=== PATIENT | female | born 1950 | race Two or more races ===

== ENCOUNTER 2016-12-15 10:17 | Inpatient (IN) | payer OTHER ==
[2016-12-15] VITALS (12 sets, daily range): BP systolic 119–147; BP diastolic 72–89
[~2016-12-15] VITALS: Ht 165.1 cm; Wt 80.7 kg
--- NOTE | 2016-12-15 10:20 | NUR ---
BIB [facility] 881 FROM HOME C/O NAUSEA, VOMITING, DEHYDRATION x 10 DAYS. PATIENT A/O X2. BREATHING EVEN AND UNLABORED. NO SOB. VITALS STABLE. SAFETY AND COMFORT MEASURES IN PLACE. MD AT BEDSIDE FOR EVAL.
[2016-12-15] MEDS ORDERED: IV NS 0.9% 1,000 ML BAG IV ONE ×2 (10:30→11:00)
[2016-12-15] MEDS ORDERED: ONDANSETRON HCL/PF 4 MG/2 ML VIAL IVP ONE (10:30)
[2016-12-15] MEDS ORDERED: ONDANSETRON HCL/PF 4 MG/2 ML VIAL ONE (10:31)
--- NOTE | 2016-12-15 10:33 | NUR ---
NEW IV STARTED ON LAC, 20 G. BLOOD DRAWN AND SENT TO LAB. PATIENT MEDICATED PER MD ORDERS.
--- NOTE | 2016-12-15 10:35 | NUR ---
PATIENT TAKEN TO CT VIA STRETCHER.
[2016-12-15 10:47] LABS: CALCIUM, SERUM 9.9 mg/dL (8.5-10.1); CREATININE 1.6 mg/dL (0.6-1.3)
--- NOTE | 2016-12-15 10:50 | NUR ---
PATIENT RETURNED FROM CT IN STABLE CONDITION.
[2016-12-15 10:51] LABS: TROPONIN I 0.038 ng/mL (0.00-0.056)
[2016-12-15 10:53] LABS: ALBUMIN 2.8 g/dL (3.4-5.0); BILIRUBIN,TOTAL 1.4 mg/dL (0.2-1.0); TOTAL PROTEIN, SERUM 6.7 g/dL (6.4-8.2)
[2016-12-15] MEDS ORDERED: INSULIN DETEMIR 100 UNIT/ML CARTRIDGE SQ SCH (11:00)
[2016-12-15 11:06] LABS: BASOPHILS % (AUTO) 0.2 % (0.0-2.0); EOSINOPHILS % (AUTO) 0.2 % (0.0-6.0); HEMATOCRIT 39 % (33-45); HEMOGLOBIN 12.7 g/dL (11.5-14.8); LYMPHOCYTES # (AUTO) 1.9 /CMM (0.8-4.8); LYMPHOCYTES % (AUTO) 12.7 % (20.0-44.0); MEAN CORPUSCULAR HEMOGLOBIN 33 PG (26.0-33.0); MEAN CORPUSCULAR HGB CONC 33 g/dl (31.0-36.0); MEAN CORPUSCULAR VOLUME 100 fL (82-100); MONOCYTES # (AUTO) 0.8 /CMM (0.1-1.30); MONOCYTES % (AUTO) 5.6 % (2.0-12.0); NEUTROPHILS # (AUTO) 12.3 /CMM (1.8-8.9); NEUTROPHILS % (AUTO) 81.3 % (43.0-81.0); PLATELET COUNT (AUTO) 240 /CMM (150-450); RDW COEFFICIENT OF VARIATION 16.9 (11.5-15.0); RED BLOOD CELL COUNT(AUTO) 3.86 MIL/uL (4.0-5.2); WHITE BLOOD COUNT (AUTO) 15.1 K/uL (4.3-11.0)
--- NOTE | 2016-12-15 11:10 | NUR ---
US TECH AT BEDSIDE.
[2016-12-15] MEDS ORDERED: INSULIN REGULAR, HUMAN 100 UNIT/ML 10 ML VIAL ONE (11:15)
--- NOTE | 2016-12-15 11:20 | NUR ---
CALLED [employer] by [employer], GENERAL PURCHASING AGENT WAS PAGED.
[2016-12-15] MEDS ORDERED: INSULIN REGULAR, HUMAN 100 UNIT/ML 10 ML VIAL IV ONE (11:30)
--- NOTE | 2016-12-15 11:33 | NUR ---
DR ALLEN CALLED, ON THE PHONE WITH DR MARIE.
[2016-12-15 11:51] LABS: APPEARANCE,URINE Clear (CLEAR); BILIRUBIN,URINE Negative (NEGATIVE); BLOOD, URINE Negative Ery/uL (NEGATIVE); COLOR,URINE Yellow (YELLOW); KETONES,URINE Trace (NEGATIVE); LEUKOCYTE ESTERASE ,URINE Negative (NEGATIVE); NITRITE, URINE Negative (NEGATIVE); PH,URINE 7.5 (5.0-8.0); PROTEIN,URINE Negative (NEGATIVE); UGLUCOSE 500 MG/DL mg/dL (NEGATIVE); UROBILINOGEN,URINE 0.2 EU/dL (0.2)
[2016-12-15] MEDS: INSULIN REGULAR, HUMAN 100 UNIT in IV NS 0.9% 99 ML IV ONE ×2 (12:02)
[2016-12-15 12:03] LABS: BACTERIA,URINE Rare /HPF (None Seen); RBC,URINE 0-3 /HPF (0-2); SQUAMOUS EPITHELIAL CELL,UR Few /HPF (None Seen); WBC,URINE 0-3 /HPF (0-3); YEAST,URINE Rare /HPF (None Seen)
[2016-12-15] MEDS ORDERED: ONDANSETRON HCL/PF 4 MG/2 ML VIAL IVP PRN (12:30)
[2016-12-15] MEDS ORDERED: INSULIN REGULAR, HUMAN 100 UNIT in IV NS 0.9% 99 ML IV PRN ×2 (12:30)
--- NOTE | 2016-12-15 12:30 | NUR ---
QUIRK SANDER- INITIAL NOTE. RECEIVED PT A/O X4, TURKISH SPEAKING. ON ROOM AIR, RESPIRATIONS EVEN AND UNLABORED, NO SOB OR DISTRESS PRESENT. BEDSIDE MONITOR REVEALS SINUS RHYTHM. TWO IVS PRESENT: 1) LEFT AC 20G AND 2) LEFT WRIST 20 G RUNNING INSULIN GTT AT 6 MLS/HR (STARTED FROM ER). FAMILY AT BEDSIDE. SAFETY MEASURES TAKEN: BED LOCKED AND IN LOW POSITION, SIDE RAILS UP X2, BED ALARM ON AND CALL LIGHT WITHIN REACH, WILL CONTINUE TO MONITOR.
--- NOTE | 2016-12-15 12:32 | NUR ---
PATIENT TRANSPORTED TO [facility] VIA ACLS PROTOCOL. RNANSLEY TO PROVIDE KIERA.
[2016-12-15] MEDS: ENOXAPARIN SODIUM 30 MG/0.3 ML DISP.SYRIN SQ SCH (13:00)
[2016-12-15] MEDS: IV NS 0.9% 1,000 ML IV PRN ×2 (13:00→19:11)
--- NOTE | 2016-12-15 13:30 | NUR ---
METAL CRAFTS TEACHER- VERIFIED WITH DR. MONTES DE OCA ON INSULIN GTT. PER , PT TO BE ON NON-DKA INSULIN GTT, ALGORITHM #1. FAXED ORDER FORM TO PHARMACY. WILL CONTINUE TO MONITOR.
[2016-12-15 15:53] LABS: CALCIUM, SERUM 8.7 mg/dL (8.5-10.1); CREATININE 1.1 mg/dL (0.6-1.3)
--- NOTE | 2016-12-15 18:22 | NUR ---
SCIENTIFIC LINGUIST- PT RESTING IN BED, NO NAUSEA/VOMITING NOTED, DENIES PAIN OR DISCOMFORT. VITAL SIGNS STABLE. CONTINUES ON INSULIN GTT AT 1 UNIT/HR (TITRATED PER PROTOCOL). REMAINS NPO. WILL ENDORSE TO HOT PRESS OPERATOR NURSE FOR CONTINUITY OF CARE.
--- NOTE | 2016-12-15 19:45 | NUR ---
DIRECTOR OF REGIONAL SALES NOTES RECEIVED PT IN BED, AWAKE. A/O X4. JAMAICAN SPEAKING. TELE READS SR AT 94 BPM. ON ROOM AIR TOLERATING WELL. NPO STATUS. ABLE TO USE BSC. LAC 20G IV AND LEFT WRIST 20G IV, RUNNING NS AT 150 ML/HR AND INSULIN DRIP AT 0.5 UNITS/HR. LAST BG 118 MG/DL. PT DENIES N/V AND PAIN. CALL LIGHT WITHIN REACH, SIDE RAILS X2. ALL NEEDS MET.
[2016-12-15 19:51] LABS: CALCIUM, SERUM 8.7 mg/dL (8.5-10.1); POTASSIUM 3.9 mmol/L (3.5-5.1)
[2016-12-15] MEDS: BLOOD SUGAR DIAGNOSTIC 1 EACH STRIP VI SCH ×2 (22:09→23:46)
[2016-12-15 23:36] LABS: CALCIUM, SERUM 8.3 mg/dL (8.5-10.1); POTASSIUM 4.1 mmol/L (3.5-5.1)
[2016-12-16] VITALS (19 sets, daily range): BP systolic 116–175; BP diastolic 73–99
[2016-12-16] MEDS ORDERED: IV NS 0.9% 1,000 ML IV PRN
--- NOTE | 2016-12-16 | NUR ---
PAPER BAG INSPECTOR NOTES PT CURRENT BG IS 105 MG/DL. TYLER CUELLO MADE AWARE. NEW ORDERS RECEIVED TO D/C INSULIN DRIP, INITIATE SUBQ SLIDING SCALE INSULIN COVERAGE, REDUCE IVF RATE TO 75ML/HR AND START OF CONSISTENT CARB DIET.
[2016-12-16] MEDS: BLOOD SUGAR DIAGNOSTIC 1 EACH STRIP IN SCH ×5 (01:04→21:56)
--- NOTE | 2016-12-16 02:30 | NUR ---
CERTIFIED PARALEGAL NOTES PT GIVEN BED BATH, LINENS CHANGED. PT HAD VOID IN DIAPER AND ABLE TO ALERT RN OF WET DIAPER.
[2016-12-16 04:55] LABS: BASOPHILS # (AUTO) 0.1 /CMM (0.0-0.2); BASOPHILS % (AUTO) 0.7 % (0.0-2.0); EOSINOPHILS # (AUTO) 0.2 /CMM (0.0-0.7); EOSINOPHILS % (AUTO) 1.8 % (0.0-6.0); HEMATOCRIT 34 % (33-45); HEMOGLOBIN 11.4 g/dL (11.5-14.8); LYMPHOCYTES % (AUTO) 15.8 % (20.0-44.0); MEAN CORPUSCULAR HEMOGLOBIN 33 PG (26.0-33.0); MEAN CORPUSCULAR HGB CONC 33 g/dl (31.0-36.0); MEAN CORPUSCULAR VOLUME 100 fL (82-100); MONOCYTES # (AUTO) 0.6 /CMM (0.1-1.30); MONOCYTES % (AUTO) 4.5 % (2.0-12.0); NEUTROPHILS # (AUTO) 9.8 /CMM (1.8-8.9); NEUTROPHILS % (AUTO) 77.2 % (43.0-81.0); PLATELET COUNT (AUTO) 194 /CMM (150-450); RDW COEFFICIENT OF VARIATION 16.8 (11.5-15.0); RED BLOOD CELL COUNT(AUTO) 3.44 MIL/uL (4.0-5.2); WHITE BLOOD COUNT (AUTO) 12.7 K/uL (4.3-11.0)
[2016-12-16 05:12] LABS: THYROID STIMULATING HORMONE 4.814 uIU/mL (0.358-3.74)
[2016-12-16 06:09] LABS: CALCIUM, SERUM 8.1 mg/dL (8.5-10.1); CREATININE 1.1 mg/dL (0.6-1.3)
[2016-12-16 06:10] LABS: MAGNESIUM 1.8 mg/dL (1.8-2.4); PHOSPHORUS 3.9 mg/dL (2.5-4.9)
--- NOTE | 2016-12-16 07:30 | NUR ---
BICYCLE REPAIR TECHNICIAN RECEIVED PATIENT AWAKE ON ROOM AIR WITH ON GOING IVF RUNNING AT 75 ML/HR AFEBRILE ALERT ORIENTED X 3 INDEPENDENT ON BED SLIGHTLY WEAKNESS ON LOWER EXTREMITIES
--- NOTE | 2016-12-16 07:30 | NUR ---
DESIGN VERIFICATION ENGINEER RECEIVED PATIENT AWAKE, OPENS EYES TO PAIN ON 2 LITERS NASAL CANNULA SATURATION 99% AFEBRILE BUT WARM TO TOUCH ON INSULIN AND NEOSYNEPHRINE DRIP MONITORED ACCURATELY ZARAGOZA CATHETER DRAINING TO YELLOWISH URINE WOUND CARE DONE, WOUND CARE NURSE SAW PATIENT WITH NEW ORDERS MADE AND CARRIED OUT Addendum: 12/16/16 at 1719 by ADALGISA DELACRUZ RN ERROR
[2016-12-16] MEDS: PANTOPRAZOLE 40 MG VIAL IV SCH (09:01)
[2016-12-16] MEDS: ENOXAPARIN SODIUM 30 MG/0.3 ML DISP.SYRIN SQ SCH (09:02)
--- NOTE | 2016-12-16 09:21 | NUR ---
PLASTIC MAKER BLOOD SUGAR IS HIGH - PATIWNT JUST ATE, WILL CHANGE BLOOD SUGAR CHECK ACHS WILL INFORM MD
[2016-12-16] MEDS: IV 1/2NS 1000 ML 1,000 ML IV PRN ×2 (11:46→22:28)
[2016-12-16] MEDS ORDERED: BLOOD SUGAR DIAGNOSTIC 1 EACH STRIP IN SCH (12:00)
[2016-12-16] MEDS ORDERED: INSULIN REGULAR, HUMAN 100 UNIT/ML 3 ML VIAL SQ PRN ×2 (12:00)
[2016-12-16] MEDS ORDERED: DEXTROSE 50%-WATER 50 ML DISP.SYRIN IV PRN ×2 (12:30)
[2016-12-16] MEDS: INSULIN REGULAR, HUMAN 100 UNIT/ML 3 ML VIAL SQ PRN ×2 (15:47→17:37)
[2016-12-16] MEDS: CEFTRIAXONE 1 G in IV D5W 50 ML IV SCH (17:26)
--- NOTE | 2016-12-16 18:11 | NUR ---
DESKTOP SUPPORT CONSULTANT REPORT GIVEN TO MELI BISHOP TRANSFERRED PATIENT
--- NOTE | 2016-12-16 18:20 | NUR ---
RN NOTES RECEIVED PATIENT FROM ICU. NO ACUTE DISTRESS, NO SOB NOTED. DENIES PAIN AND DISCOMFORT. SAFETY MEASURES INITIATED. BED IN LOW POSITION, LOCKED, SIDERAILS UPX2. CALL LIGHT IN REACH. WILL ENDORSED TO WRAPPER STEMMER HAND RN FOR KIERA.
--- NOTE | 2016-12-16 21:56 | NUR ---
MS2/RN ACCU CHECK DONE, INITIAL RESULT 44, REPEATED, BLOOD SUGAR 59, PATIENT IS ASYMPTOMATIC. D 50 IV WAS GIVEN ORDERED. WILL MONITOR.
--- NOTE | 2016-12-16 23:58 | NUR ---
MS2/RN RECHECK BLOOD [id number]. WILL CONTINUE TO MONITOR.
[2016-12-17] MEDS: IV 1/2NS 1000 ML 1,000 ML IV PRN ×2 (05:49→18:25)
[2016-12-17 06:43] LABS: BASOPHILS # (AUTO) 0.1 /CMM (0.0-0.2); BASOPHILS % (AUTO) 0.7 % (0.0-2.0); EOSINOPHILS # (AUTO) 0.2 /CMM (0.0-0.7); EOSINOPHILS % (AUTO) 1.7 % (0.0-6.0); HEMATOCRIT 35 % (33-45); LYMPHOCYTES # (AUTO) 1.8 /CMM (0.8-4.8); LYMPHOCYTES % (AUTO) 18.8 % (20.0-44.0); MEAN CORPUSCULAR HEMOGLOBIN 34 PG (26.0-33.0); MEAN CORPUSCULAR HGB CONC 34 g/dl (31.0-36.0); MEAN CORPUSCULAR VOLUME 100 fL (82-100); MONOCYTES # (AUTO) 0.5 /CMM (0.1-1.30); MONOCYTES % (AUTO) 5.8 % (2.0-12.0); NEUTROPHILS # (AUTO) 6.9 /CMM (1.8-8.9); PLATELET COUNT (AUTO) 174 /CMM (150-450); RDW COEFFICIENT OF VARIATION 16.5 (11.5-15.0); RED BLOOD CELL COUNT(AUTO) 3.53 MIL/uL (4.0-5.2); WHITE BLOOD COUNT (AUTO) 9.5 K/uL (4.3-11.0)
--- NOTE | 2016-12-17 07:07 | NUR ---
MS2/RN AWAKE, ALERT, ORIENTED, COMFORTABLE, NO DISTRESS NOTED, ALL NEEDS ATTENDED AT THIS TIME. WILL CONTINUE TO MONITOR.
[2016-12-17 07:09] LABS: CALCIUM, SERUM 8.2 mg/dL (8.5-10.1); MAGNESIUM 1.5 mg/dL (1.8-2.4); PHOSPHORUS 2.9 mg/dL (2.5-4.9)
[2016-12-17 07:15] LABS: POTASSIUM 3.6 mmol/L (3.5-5.1)
[2016-12-17] MEDS: BLOOD SUGAR DIAGNOSTIC 1 EACH STRIP IN SCH ×4 (07:30→21:52)
--- NOTE | 2016-12-17 08:30 | NUR ---
MS RN PATIENT ON BED, AWAKE,ALERT,ORIENTED X3, NOT IN ANY FORM OF DISTRESS, RESPIRATIONS EVEN AND UNLABORED,NO SOB NOTED, LUNGS ARE CLEAR, ABDOMEN SOFT,POSITIVE BOWEL SOUNDS, DENIES PAIN AT THIS TIME, WILL MONITOR PATIENT.
--- NOTE | 2016-12-17 09:00 | NUR ---
MS BISHOP BREAKFAST SERVED,DUE MEDS GIVEN,TOLERATED WELL.
[2016-12-17] MEDS: PANTOPRAZOLE 40 MG VIAL IV SCH (09:06)
[2016-12-17] MEDS: ENOXAPARIN SODIUM 30 MG/0.3 ML DISP.SYRIN SQ SCH (09:14)
[2016-12-17] MEDS ORDERED: ACETAMINOPHEN 325 MG TABLET PO PRN (10:00)
[2016-12-17] MEDS: Magnesium 1GM/D5W 100ML PREMIX 100 ML IV SCH ×2 (12:42→14:09)
[2016-12-17] MEDS: INSULIN REGULAR, HUMAN 100 UNIT/ML 3 ML VIAL SQ PRN ×2 (12:48→17:47)
--- NOTE | 2016-12-17 13:00 | NUR ---
MS RN WAS SEEN BY DR. HAMILTON, WILL BE DISCHARGE TOMORROW,NOT TODAY.
--- NOTE | 2016-12-17 17:00 | NUR ---
MS EDNA TEXT DR. HAMILTON FOR B/P MEDS ORDER.
--- NOTE | 2016-12-17 17:20 | NUR ---
MS BISHOP BS-361 - 20 UNITS GIVEN FOR COVERAGE.
[2016-12-17] MEDS: CEFTRIAXONE 1 G in IV D5W 50 ML IV SCH (17:41)
[2016-12-17] MEDS ORDERED: hydrALAZINE HCL IV 20 MG VIAL IV PRN (18:00)
--- NOTE | 2016-12-17 18:08 | NUR ---
MS RN RECEIVED ORDER FROM DR. HAMILTON, WILL GIVE MEDS TO PATIENT PATIENT.
--- NOTE | 2016-12-17 19:30 | NUR ---
MS2/RN RECEIVE PATIENT AWAKE, ALERT, ORIENTED, COMFORTABLE, NO C/O PAIN AT THIS TIME, NO DISTRESS NOTED, CALL LIGHT IN REACH. PLAN OF CARE DISCUSSED, VERBALIZED UNDERSTANDING AND IN AGREEMENT, CALL LIGHT IN REACH. WILL MONITOR.
[2016-12-17 20:00] VITALS: BP 141/95
--- NOTE | 2016-12-17 21:13 | NUR ---
MS2/RN FOUND IV PULLED OUT. INSERTED NEW IV AT LEFT WRIST G22.
[2016-12-17] MEDS: *INSULIN REGULAR(HUMULIN R)HUM 100 UNIT/ML VIAL SQ PRN (21:49)
[2016-12-18] MEDS: IV 1/2NS 1000 ML 1,000 ML IV PRN (05:17)
--- NOTE | 2016-12-18 06:28 | NUR ---
MS2/RN PATIENT IS SLEEPING AT THIS TIME, AROUSES EASILY, NO DISTRESS NOTED, CALL LIGHT IN REACH. HAD AN ON AND OFF SLEEP THE DURING THE SHIFT. ALL NEEDS ATTENDED AT THIS TIME. WILL CONTINUE TO MONITOR.
[2016-12-18] MEDS: *INSULIN REGULAR(HUMULIN R)HUM 100 UNIT/ML VIAL SQ PRN (06:56)
[2016-12-18 07:44] LABS: CALCIUM, SERUM 8.1 mg/dL (8.5-10.1); CREATININE 0.8 mg/dL (0.6-1.3); MAGNESIUM 1.8 mg/dL (1.8-2.4); POTASSIUM 3.8 mmol/L (3.5-5.1)
[2016-12-18] MEDS: BLOOD SUGAR DIAGNOSTIC 1 EACH STRIP IN SCH ×2 (07:59→12:12)
[2016-12-18] MEDS: PANTOPRAZOLE 40 MG VIAL IV SCH (08:01)
[2016-12-18] MEDS: ENOXAPARIN SODIUM 30 MG/0.3 ML DISP.SYRIN SQ SCH (08:04)
--- NOTE | 2016-12-18 10:00 | NUR ---
RN NOTES RECEIVED PT. PT IS STABLE AND RESTING IN BED. A/0X4, PT PRIMARY LANGUAGE IS CROATIAN. NO S/S OF DISTRESS OR SOB. PT HAS NO C/O PAIN AT THIS TIME. PREVIOUS BS CHECK RESULTED IN 192, BS CONTINUES TO TREND DOWN. IV ACCESS LOCATED ON LEFT WRIST 22G RUNNING 1/2 NS AT 125 ML/HR. PT PLAN TO BE DC HOME TODAY 12/18/16 PENDING PT EVAL. SAFETY MEASURES IN PLACE, CALL LIGHT WITHIN REACH. WILL CONTINUE TO MONITOR.
[2016-12-18 10:07] VITALS: BP 158/83
[2016-12-18] MEDS: INSULIN REGULAR, HUMAN 100 UNIT/ML 3 ML VIAL SQ PRN (12:13)
--- NOTE | 2016-12-18 16:10 | NUR ---
DISCHARGE NOTE PT DISCHARGED HOME PER MD ORDER. ALL EXIT CARE AND PERTINENT LABS, REPORTS AND TESTS COPIED AND GIVEN TO PT. PT DC INSTRUCTIONS EXPLAINED, TRANSLATED BY MARTHA BISHOP. PT VERBALIZES UNDERSTANDING OF TEACHING. BELONGINGS LIST AND DISCHARGE INSTRUCTIONS SIGNED. COPIES MADE AND PLACED IN CHART. MEDICATION PRESCRIPTION GIVEN TO PT. ID BAND AND IV ACCESS REMOVED PRIOR TO DC. PICTURES TAKEN OF PERINEAL EXCORIATION. PT LEFT VIA PRIVATE CAR WITH .
== END 2016-12-18 16:05 | disposition home or self-care (01) | DRG 438 ==
LOC: ER 10:19 → ICU 12:21 → MEDSG2 12-16 18:22
DX: K85.90 Acute pancreatitis without necrosis or infection, unspecified (principal); N17.0 Acute kidney failure with tubular necrosis; E87.0 Hyperosmolality and hypernatremia; E44.0 Moderate protein-calorie malnutrition; E83.42 Hypomagnesemia; E86.0 Dehydration; E11.9 Type 2 diabetes mellitus without complications; E88.09 Other disorders of plasma-protein metabolism, not elsewhere classified; G25.0 Essential tremor; Z85.3 Personal history of malignant neoplasm of breast; E80.6 Other disorders of bilirubin metabolism; Z90.11 Acquired absence of right breast and nipple; Z68.29 Body mass index [BMI] 29.0-29.9, adult; E87.5 Hyperkalemia; F10.10 Alcohol abuse, uncomplicated; Z79.4 Long term (current) use of insulin
CPT/HCPCS: 36415; 71010-TC; 76705-TC; 80048-TC; 80061-TC; 80076-TC; 81000-TC; 82962-TC; 83690-TC; 83735-TC; 84100-TC; 84443-TC; 84484-TC; 85025-TC; 87081-TC; 87086-TC; 87186-TC; A4606; C9113; J0696; J1650; J1815; J2405; J3475; J3490; J7030; J7060; Z7610

== ENCOUNTER 2017-07-03 14:32 | Emergency (ER) | payer OTHER ==
[~2017-07-03] VITALS: Ht 177.8 cm; Wt 72.6 kg
[2017-07-03 14:48] VITALS: BP 140/78
== END 2017-07-03 15:45 | disposition home or self-care (01) ==
LOC: ER 14:35
DX: B02.9 Zoster without complications (principal); M25.561 Pain in right knee; F17.200 Nicotine dependence, unspecified, uncomplicated; Z90.11 Acquired absence of right breast and nipple
CPT/HCPCS: 73564; 99284; A4606; Z7610

== ENCOUNTER 2018-10-25 10:57 | Emergency (ER) | payer OTHER ==
[~2018-10-25] VITALS: Ht 165.1 cm; Wt 80.3 kg
[2018-10-25 11:03] VITALS: BP 155/99
== END 2018-10-25 11:57 | disposition home or self-care (01) ==
LOC: ER 10:57
DX: L20.9 Atopic dermatitis, unspecified (principal); L01.00 Impetigo, unspecified; F17.200 Nicotine dependence, unspecified, uncomplicated; Z90.11 Acquired absence of right breast and nipple

== ENCOUNTER 2019-03-06 12:14 | Inpatient (IN) | payer OTHER ==
[~2019-03-06] VITALS: Ht 167.6 cm; Wt 85.3 kg
[2019-03-06] VITALS (22 sets, daily range): BP systolic 88–141; BP diastolic 34–77
--- NOTE | 2019-03-06 12:27 | NUR ---
PT REC'D TO ER VIA EMS C/O ALTERED LIVES AT HOME WITH . HE SYS PT WONT TAKE HER MEDS. ACCU CK 96 IV RT AC 18G HEPLOCKED SKIN INTACT AWAITING EVALUATION BY ER PROVIDER.
[2019-03-06] MEDS ORDERED: GABA-532 PO (12:47)
[2019-03-06] MEDS ORDERED: METO-357 PO (12:47)
[2019-03-06] MEDS ORDERED: HYDR-3972 PO (12:47)
[2019-03-06] MEDS ORDERED: FOLI0.8T PO (12:47)
[2019-03-06] MEDS ORDERED: GLIP5TAB13 PO (12:47)
[2019-03-06] MEDS ORDERED: HYDR-500 PO (12:47)
[2019-03-06] MEDS ORDERED: LORA-258 PO (12:47)
[2019-03-06] MEDS ORDERED: METF-440 PO (12:47)
[2019-03-06] MEDS ORDERED: CLON0.5T4 PO (12:47)
[2019-03-06] MEDS ORDERED: ALLO300T2 PO (12:47)
[2019-03-06] MEDS ORDERED: THIA100T68 PO (12:47)
[2019-03-06] MEDS ORDERED: SPIR100T5 PO (12:47)
[2019-03-06] MEDS ORDERED: LISI-603 PO (12:47)
--- NOTE | 2019-03-06 13:20 | NUR ---
RAFAEL MANZO [phone]
[2019-03-06] MEDS ORDERED: IV NS 0.9% 500 ML BAG IV ONE ×2 (13:30→15:30)
[2019-03-06] MEDS ORDERED: VANCOMYCIN HCL 1 GM in IV D5W 260 ML IV ONE (13:30)
[2019-03-06] MEDS ORDERED: CEFTRIAXONE 1GM BAG (ER ONLY) 1 GM/50 ML PIGGYBACK IV ONE (13:30)
[2019-03-06 13:33] LABS: BASOPHILS % (AUTO) 0.5 % (0.0-2.0); EOSINOPHILS % (AUTO) 0.2 % (0.0-6.0); HEMATOCRIT 38 % (33-45); LYMPHOCYTES # (AUTO) 0.6 /CMM (0.8-4.8); LYMPHOCYTES % (AUTO) 5.7 % (20.0-44.0); MEAN CORPUSCULAR HGB CONC 31 g/dl (31.0-36.0); MEAN CORPUSCULAR VOLUME 112 fL (82-100); MONOCYTES # (AUTO) 0.9 /CMM (0.1-1.30); MONOCYTES % (AUTO) 9.4 % (2.0-12.0); NEUTROPHILS # (AUTO) 8.2 /CMM (1.8-8.9); NEUTROPHILS % (AUTO) 84.2 % (43.0-81.0); PLATELET COUNT (AUTO) 110 /CMM (150-450); RED BLOOD CELL COUNT(AUTO) 3.42 MIL/uL (4.0-5.2); WHITE BLOOD COUNT (AUTO) 9.7 K/uL (4.3-11.0)
[2019-03-06] MEDS ORDERED: CEFTRIAXONE 1GM BAG (ER ONLY) 50 ML IV ONE (13:39)
[2019-03-06] MEDS ORDERED: DEXTROSE 50%-WATER 50 ML DISP.SYRIN ONE (13:40)
[2019-03-06] MEDS ORDERED: DEXTROSE 50%-WATER 50 ML DISP.SYRIN IVP ONE (14:00)
--- NOTE | 2019-03-06 14:10 | NUR ---
in and out cath done bm med light brown cleaned and skin good no breakdown . iv strted 20g left ac infusing rochenin 1gm and ns bouls vanco up per md order pt sent to ct
--- NOTE | 2019-03-06 14:10 | NUR ---
accu ck 77 after oj and D50 ivp now
[2019-03-06 14:15] LABS: SERUM AMMONIA 111 umol/L (11-32)
[2019-03-06 14:59] LABS: ALBUMIN 2.7 g/dL (3.4-5.0); BILIRUBIN,DIRECT 6.6 mg/dL (0.0-0.2); BILIRUBIN,TOTAL 8.4 mg/dL (0.2-1.0); CALCIUM, SERUM 8.4 mg/dL (8.5-10.1); CREATININE 2.6 mg/dL (0.6-1.3); POTASSIUM 6.1 mmol/L (3.5-5.1); TOTAL PROTEIN, SERUM 6.4 g/dL (6.4-8.2)
[2019-03-06 15:00] LABS: B-TYPE NATRIURETIC PEPTIDE 2418 PG/ML (0-125)
[2019-03-06] MEDS ORDERED: SODIUM BICARBONATE SYR 50 MEQ/50 ML DISP.SYRIN ONE (15:14)
[2019-03-06] MEDS ORDERED: Calcium Gluconate 0.465 MEQ/ML VIAL IV ONE (15:15)
[2019-03-06] MEDS ORDERED: SODIUM POLYSTYRENE SULFONATE 15 G/60 ML BOTTLE ONE (15:15)
[2019-03-06 15:27] LABS: BAND % (MANUAL) 4 % (0.0-5.0); EOSINOPHILS % (MANUAL) 1 % (0-4); LYMPHOCYTES % (MANUAL) 8 % (16-48); MONOCYTES % (MANUAL) 11 % (0-11.0); NEUTROPHILS % (MANUAL) 76 (42-76)
[2019-03-06] MEDS ORDERED: Calcium Gluconate 1GM/10ML 4.65 MEQ in IV NS 0.9% 40 ML IV ONE (15:30)
[2019-03-06] MEDS ORDERED: SODIUM POLYSTYRENE SULFONATE 15 G/60 ML BOTTLE PO ONE (15:30)
[2019-03-06] MEDS ORDERED: SODIUM BICARBONATE SYR 50 MEQ/50 ML DISP.SYRIN IV ONE (15:30)
--- NOTE | 2019-03-06 15:37 | NUR ---
CALLED ANDONIAN FOR ADMISSION
--- NOTE | 2019-03-06 15:42 | NUR ---
pt intubatted 7.5 1526 25 lip 1524 bicarb , 1525 janel 20 , rt at bedside xray done . ng tub einseted rt nare tolerated well inplace per xray . sent to ct
[2019-03-06 15:48] LABS: ALCOHOL, BLOOD 86 mg/dL (0-0)
[2019-03-06] MEDS ORDERED: ETOMIDATE 2 MG/ML VIAL IV ONE (16:00)
[2019-03-06] MEDS: NOREPINEPHRINE 8 MG in IV D5W 500 ML IV ONE ×2 (16:00→17:00)
[2019-03-06] MEDS ORDERED: FENTANYL CITRAT IV 2,500 MCG in IV NS 0.9% 200 ML IV PRN (16:00)
[2019-03-06] MEDS ORDERED: ROCURONIUM BROMIDE 100 MG/10 ML VIAL IV ONE (16:00)
[2019-03-06] MEDS ORDERED: IV D5/ 0.9% NACL 1,000 ML IV ONE (16:24)
--- NOTE | 2019-03-06 16:28 | NUR ---
pending central line insetion. ultrasound at bedside
[2019-03-06] MEDS ORDERED: ONDANSETRON HCL/PF 4 MG/2 ML VIAL IVP PRN (16:30)
[2019-03-06] MEDS ORDERED: MAG HYDROX/AL HYDROX/SIMETH 30 ML UDC PO PRN (16:30)
[2019-03-06] MEDS ORDERED: Z GUARD REMEDY 2 OZ OINT TP PRN (16:30)
[2019-03-06] MEDS ORDERED: IV NS 0.9% 1,000 ML BAG IV ONE (16:30)
[2019-03-06] MEDS ORDERED: MAGNESIUM HYDROXIDE 30 ML UDC PO PRN (16:30)
--- NOTE | 2019-03-06 16:31 | NUR ---
lab at bedside redraw
--- NOTE | 2019-03-06 16:51 | NUR ---
spoke with daniely member dodd . picc line in xray at bedside
--- NOTE | 2019-03-06 16:52 | NUR ---
accck 176 notified
[2019-03-06] MEDS ORDERED: METFORMIN 500 MG TABLET PO SCH (17:00)
[2019-03-06] MEDS ORDERED: METOPROLOL SUCCINATE 50 MG TAB.SR.24H PO SCH (17:00)
--- NOTE | 2019-03-06 17:00 | NUR ---
STARTED LEVO 3 TITRATE TO EFFECT CONT MONITOR
--- NOTE | 2019-03-06 17:03 | NUR ---
lactic acid 20.2 notified
[2019-03-06 17:10] LABS: CALCIUM, SERUM 7.2 mg/dL (8.5-10.1); CREATININE 2.5 mg/dL (0.6-1.3); POTASSIUM 5.2 mmol/L (3.5-5.1)
--- NOTE | 2019-03-06 17:10 | NUR ---
91.9 rectal temp elvis sweeney
--- NOTE | 2019-03-06 17:29 | NUR ---
GIVEN REPORT TO PERIOUS STABLE FOR TRANSFER RT CALLED
[2019-03-06] MEDS ORDERED: Sodium Bicarbonate 100 MEQ in IV NS 0.9% 1,000 ML IV PRN (18:00)
[2019-03-06] MEDS ORDERED: PIPERACILLIN /TAZOBACTAM 3.375 G in IV D5W 50 ML IV SCH (18:00)
--- NOTE | 2019-03-06 18:10 | NUR ---
RN NOTES RECEIVED PATIENT FROM ER VIA GURNEY, CAME DUE TO ALTERED MENTAL STATUS, PATIENT RESPONDS TO PAINFUL STIMULI, ON VENTILATOR WITH THE FOLLOWING SETTINGS AC 12, VT OF 500, URW223%, PEEP OF 5, SATING WELL.PATIENT TRANSFERRED TO IN BED, ATTACHED TO THE MONITOR WITH VITAL SIGNS NOTED WITHIN NORMAL RANGES ASIDE FROM THE TEMPERATURE AT 90.6. SKIN ASSESSMENT DONE, NOTED TO BE INTACT, HEMORRHOIDS NOTED ON THE RECTAL AREA. PATIENT MADE WARMTH AND COMFORTABLE IN BED. IV SITES FOLLOW TRIPLE LUMEN PICC LINE ON THE RIGHT UPPER ARM, RAC G 18 AND LAC G [address], ALL PATENT AND FLUSHING WELL. WITH ONGOING VANCOMYCIN, LEVOPHED AT 10MCG AND D5 1/2 NS AT THIS TIME, WILL ADMINISTER ORDERED. ZARAGOZA CATHETER IN PLACE, NO URINE OUTPUT NOTED AT THIS TIME. HOB ELEVATED FOR ASPIRATION PRECAUTION. PATIENT SUCTIONED FOR AIRWAY PATENCY. SAFETY MEASURES PUT IN PLACE.SRX2. BED IN LOW AND LOCKED POSITIONED. CALL LIGHT WITHIN REACH, WILL MONITOR PATIENT ACCORDINGLY AND CARRY OUT ADMITTING ORDERS
[2019-03-06 18:32] LABS: ABG BASE EXCESS -25.9 mmol/L; ABG OXYGEN SATURATION 93.6 % (92.0-98.5); ABG PCO2 41.8 mmHg (35.0-45.0); ABG PH 6.847 (7.350-7.450); ABG PO2 115.3 mmHg (75.0-100.0); AaDO2 121.8 mmHg; COHb 0.3 % (0.5-1.5); MetHb 0.7 % (0.0-1.5); O2Hb 92.7 % (94.0-97.0); PEEP,BG 0 cm H2O; SITE, ABG Right Radial; VT, ABG 500 mL
--- NOTE | 2019-03-06 18:40 | NUR ---
RN NOTES RELAYED ABG TO DR ROYAL, NO NEW ORDER AT THIS TIME SINCE HE ALREADY PLACED AN ORDER FOR SODIUM BICARBONATE INFUSION
[2019-03-06] MEDS: NOREPINEPHRINE 8 MG in IV D5W 500 ML IV PRN (19:00)
[2019-03-06] MEDS ORDERED: PIPERACILLIN /TAZOBACTAM 2.25 G in IV D5W 50 ML IV SCH ×4 (20:00)
[2019-03-06] MEDS ORDERED: PROPOFOL 100 ML IV PRN (20:00)
--- NOTE | 2019-03-06 20:15 | NUR ---
PERFUME AND TOILET WATER MAKER NOTES CORE TEMP 90.6, RIC JOSÉ MIGUELGGER BLANKET APPLIED
[2019-03-06 20:44] LABS: CALCIUM, SERUM 7.2 mg/dL (8.5-10.1); CREATININE 2.7 mg/dL (0.6-1.3); POTASSIUM 5.6 mmol/L (3.5-5.1)
[2019-03-06] MEDS: PIPERACILLIN /TAZOBACTAM 2.25 G in IV D5W 50 ML IV SCH (23:18)
[2019-03-07] VITALS (116 sets, daily range): BP systolic 40–161; BP diastolic 16–104
--- NOTE | 2019-03-07 00:10 | NUR ---
ANCHOR TACKER NOTES RECEIVED CALL FROM DR DIAMOND. LATEST LABS AND VITALS DISCUSSED WITH MD. PER MD, COLLECT URINE SAMPLE AND SEND TO LAB FOR UA. MD MADE AWARE THAT PATIENT HAS MINIMAL URINE OUTPUT (< 5ML) SINCE START OF SHIFT, UNABLE TO SEND SAMPLE AT THIS TIME. WILL CONTINUE TO CLOSELY MONITOR PATIENT AND WILL SEND WHEN SAMPLE READY
--- NOTE | 2019-03-07 02:14 | NUR ---
BOSTON CUTTER NOTES PATIENT NOTED TO KIMI DOWN TO 38BPM, HYPOTENSIVE ON LEVOPHED GTT, ATROPINE GIVEN PER PROTOCOL @ 0214, HR NOTED TO GO UP TO 90s, LEVOPHED GTT TITRATED UP FOR BP SUPPORT. DR DIAMOND NOTIFIED, NO NEW ORDERS AT THIS TIME. WILL CONTINUE TO MONITOR.
[2019-03-07] MEDS ORDERED: NOREPINEPHRINE 4 MG/4 ML AMPUL IV ONE ×2 (02:52→22:47)
[2019-03-07 03:06] LABS: HEMATOCRIT 36 % (33-45); HEMOGLOBIN 10.6 g/dL (11.5-14.8); LYMPHOCYTES # (AUTO) 0.8 /CMM (0.8-4.8); MEAN CORPUSCULAR HGB CONC 29 g/dl (31.0-36.0); MEAN CORPUSCULAR VOLUME 118 fL (82-100); MONOCYTES # (AUTO) 0.3 /CMM (0.1-1.30); NEUTROPHILS # (AUTO) 4.7 /CMM (1.8-8.9); PLATELET COUNT (AUTO) 115 /CMM (150-450); RED BLOOD CELL COUNT(AUTO) 3.07 MIL/uL (4.0-5.2); WHITE BLOOD COUNT (AUTO) 7.3 K/uL (4.3-11.0)
[2019-03-07 03:09] LABS: ALBUMIN 2.5 g/dL (3.4-5.0); BILIRUBIN,TOTAL 8.2 mg/dL (0.2-1.0); CALCIUM, SERUM 7.5 mg/dL (8.5-10.1); MAGNESIUM 2.1 mg/dL (1.8-2.4); TOTAL PROTEIN, SERUM 6.1 g/dL (6.4-8.2)
[2019-03-07 03:24] LABS: NEUTROPHILS % (MANUAL) 80 (42-76)
[2019-03-07 03:25] LABS: BAND % (MANUAL) 7 % (0.0-5.0); LYMPHOCYTES % (MANUAL) 7 % (16-48); MONOCYTES % (MANUAL) 6 % (0-11.0)
[2019-03-07] MEDS: NOREPINEPHRINE 8 MG in IV D5W 500 ML IV PRN (03:43)
[2019-03-07 03:54] LABS: POTASSIUM 6.6 mmol/L (3.5-5.1)
--- NOTE | 2019-03-07 04:00 | NUR ---
GAS ANALYST NOTES TITRATING TOWARDS MAX DOSE OF LEVOPHED. CONTACTED DR DERDERIAN. HARRELL WITH NEW ORDERS: 2ND PRESSOR NEOSYNEPHRINE, 1 AMP CALCIUM GLUCONATE, INSULIN 10 UNITS IV, INCREASE BICARB GTT TO 125ML/HR, 500CC NS BOLUS, AND INITIATE CVP READINGS. ALL ORDERS READ BACK FOR CLARIFICATION. WILL CARRY OUT ALL NEW ORDERS
[2019-03-07] MEDS ORDERED: SODIUM BICARBONATE SYR 50 MEQ/50 ML DISP.SYRIN IV ONE ×3 (04:30→22:47)
[2019-03-07] MEDS ORDERED: IV NS 0.9% 500 ML IV ONE ×2 (04:30→05:00)
[2019-03-07] MEDS ORDERED: Calcium Gluconate 1GM/10ML 4.65 MEQ in IV NS 0.9% 40 ML IV ONE (04:30)
[2019-03-07] MEDS ORDERED: INSULIN REGULAR, HUMAN 100 UNIT/ML 3 ML VIAL IV ONE (04:30)
[2019-03-07] MEDS ORDERED: IV NS 0.9% 1,000 ML IV PRN (04:30)
[2019-03-07] MEDS ORDERED: Calcium Gluconate 0.465 MEQ/ML VIAL IV ONE (04:43)
[2019-03-07] MEDS ORDERED: PHENYLEPHRINE 10 MG/ML VIAL ONE (04:44)
[2019-03-07] MEDS ORDERED: SODIUM POLYSTYRENE SULF. PWD 15 GM UDC PO ONE (05:00)
--- NOTE | 2019-03-07 05:01 | NUR ---
GREENHOUSE TECHNICIAN NOTE MULTIPLE ORDERS FOR NS BOLUS NOTED. CLARIFIED WITH DR DIAMOND, TOTAL OF 1 LITER NS BOLUS TO BE GIVEN
[2019-03-07] MEDS: SODIUM BICARBONATE IV PRN ×3 (05:04→19:04)
[2019-03-07] MEDS: NS 0.9% IV PRN ×3 (05:04→19:04)
[2019-03-07 05:07] LABS: VT, ABG 500 mL
[2019-03-07] MEDS ORDERED: SODIUM POLYSTYRENE SULFONATE 15 G/60 ML BOTTLE ONE (05:10)
[2019-03-07] MEDS: PIPERACILLIN /TAZOBACTAM 2.25 G in IV D5W 50 ML IV SCH ×3 (05:11→17:02)
[2019-03-07 05:25] LABS: ABG BASE EXCESS -22.7 mmol/L; ABG OXYGEN SATURATION 99.1 % (92.0-98.5); ABG PCO2 52.8 mmHg (35.0-45.0); ABG PH 6.892 (7.350-7.450); ABG PO2 375.1 mmHg (75.0-100.0); AaDO2 285.1 mmHg; COHb 0.3 % (0.5-1.5); O2Hb 97.8 % (94.0-97.0); PEEP,BG 0 cm H2O; SITE, ABG Right Brachial
--- NOTE | 2019-03-07 05:53 | NUR ---
CLINICAL SOCIAL WORK AIDE NOTES UNABLE TO REACH DR ROSE INSTRUCTED BY DR DIAMOND, STILL AWAITING CALL BACK. ABG RESULTS RELAYED TO DR DIAMOND INSTEAD. WITH ORDERS TO START TITRATING FIO2 DOWN. RT CLARK MADE AWARE OF NEW ORDERS, FIO2 TITRATED DOWN TO 80%, WILL MONITOR. MD ALSO WITH ORDER FOR REPEAT ABG @ 0800
[2019-03-07] MEDS: NOREPINEPHRINE 16 MG in IV D5W 500 ML IV PRN ×3 (06:50→19:50)
[2019-03-07] MEDS: PHENYLEPHRINE 80 MG in IV D5W 250 ML IV PRN ×3 (07:04→18:54)
--- NOTE | 2019-03-07 07:35 | NUR ---
ICU/RN INITIAL NOTES,AM RECEIVED BEDSIDE REPORT FROM NIGHT NURSE. PT INTUBATED ETT 7.5 AND 23CM AT THE LIP. ON VENT SETTINGS ORDERED BY MD, PT NOTED WITH LABORED RESPIRATIONS, USE OF ACCESSORY MUSCLES, ORDERS FOR ABG PLACED BY MD. PT ON TELE SINUS TACHYCARDIA. ZARAGOZA IN PLACE, PT ANURIC. PT CURRENTLY NPO. RIGHT NARE NG TUBE IN PLACE, CLAMPED. RIGHT UPPER ARM PICC LINE AND PIV'S IN PLACE. PT ON MAX LEVOPHED FOR BP SUPPORT, JOHN ON STANDBY. CVP MONITORING, ZEROED AND CALIBRATED. ALL NEEDS WILL BE ATTENDED TO, SAFETY MEASURES TAKEN, BED IN LOW POSITION, SIDE RAILS UP, CALL LIGHT WITHIN REACH. WILL CONTINUE CARE.
[2019-03-07 08:09] LABS: ABG BASE EXCESS -20.9 mmol/L; ABG OXYGEN SATURATION 64.2 % (92.0-98.5); ABG PCO2 53.2 mmHg (35.0-45.0); ABG PH 6.937 (7.350-7.450); ABG PO2 43.1 mmHg (75.0-100.0); AaDO2 471.4 mmHg; COHb 0.3 % (0.5-1.5); MetHb 1.4 % (0.0-1.5); O2Hb 63.1 % (94.0-97.0); SITE, ABG Other
--- NOTE | 2019-03-07 08:10 | NUR ---
ICU/RN: ABG DONE. PT REMAINS IN CRITICAL CONDITION. RESULTS RELAYED TO MD, VENT CHANGES MADE BY RT. PT NOW AC 28, 550, 100% AND PEEP 5. WILL CONTINUE TO MONITOR AND ASSESS.
[2019-03-07] MEDS ORDERED: ROCURONIUM BROMIDE 50 MG/5 ML IV ONE (08:29)
[2019-03-07] MEDS ORDERED: ETOMIDATE 2 MG/ML VIAL IV ONE (08:29)
[2019-03-07] MEDS ORDERED: GABAPENTIN 100 MG CAPSULE PO SCH (09:00)
[2019-03-07] MEDS ORDERED: FOLIC ACID 1 MG TABLET PO SCH (09:00)
[2019-03-07] MEDS ORDERED: THIAMINE HCL 100 MG TABLET PO SCH (09:00)
[2019-03-07] MEDS ORDERED: glipiZIDE 5 MG TABLET PO SCH (09:00)
[2019-03-07] MEDS ORDERED: SPIRONOLACTONE 100 MG PO SCH (09:00)
[2019-03-07] MEDS ORDERED: VASOPRESSIN INJ 50 UNIT in IV D5W 497.5 ML IV PRN (09:30)
[2019-03-07 09:35] LABS: BASOPHILS % (AUTO) 0.5 % (0.0-2.0); EOSINOPHILS % (AUTO) 15.1 % (0.0-6.0); HEMATOCRIT 37 % (33-45); HEMOGLOBIN 11.1 g/dL (11.5-14.8); LYMPHOCYTES # (AUTO) 0.6 /CMM (0.8-4.8); LYMPHOCYTES % (AUTO) 8.2 % (20.0-44.0); MEAN CORPUSCULAR HGB CONC 30 g/dl (31.0-36.0); MEAN CORPUSCULAR VOLUME 116 fL (82-100); MONOCYTES # (AUTO) 0.4 /CMM (0.1-1.30); MONOCYTES % (AUTO) 6.5 % (2.0-12.0); NEUTROPHILS # (AUTO) 4.8 /CMM (1.8-8.9); NEUTROPHILS % (AUTO) 69.7 % (43.0-81.0); PLATELET COUNT (AUTO) 111 /CMM (150-450); RED BLOOD CELL COUNT(AUTO) 3.19 MIL/uL (4.0-5.2); WHITE BLOOD COUNT (AUTO) 6.9 K/uL (4.3-11.0)
[2019-03-07 09:42] LABS: CALCIUM, SERUM 7.2 mg/dL (8.5-10.1); CARBON DIOXIDE 12 mmol/L (21-32); CHLORIDE 97 mmol/L (98-107); CREATININE 3.5 mg/dL (0.6-1.3); GLUCOSE 159 mg/dL (74-106); POTASSIUM 5.6 mmol/L (3.5-5.1); SODIUM SERUM 140 mmol/L (136-145); UREA NITROGEN, BLOOD 27 mg/dL (7-18)
[2019-03-07] MEDS: HYDROCORTISONE SOD SUCCINATE 100 MG/2 ML VIAL IV SCH ×3 (09:46→16:44)
[2019-03-07] MEDS ORDERED: ATROPINE SULFATE 1 MG/10 ML DISP.SYRIN IV ONE ×2 (09:48→22:47)
[2019-03-07 09:49] LABS: CREATININE, URINE < 13.0 MG/DL (30.0-125.0); URINE SODIUM, RANDOM 142 mmol/l (40-220)
[2019-03-07 10:12] LABS: URINE TOTAL PROTEIN 828.5 mg/dL (0-11.9)
--- NOTE | 2019-03-07 10:30 | NUR ---
ICU/RN: ROUNDS DR. ROY AT BEDSIDE. PT AND LABS ASSESSED. INFORMED DR THAT PT HAS BILATERAL MASTECTOMY HOWEVER PICC LINE WAS INSERTED IN RIGHT UPPER ARM DURING ADMISSION. PT REMAINS CRITICAL, ON VENT SETTINGS ORDERED. WILL CONTINUE TO MONITOR.
[2019-03-07 10:55] LABS: BAND % (MANUAL) 20 % (0.0-5.0); BASOPHILS % (MANUAL) 1 % (0.0-2.0); EOSINOPHILS % (MANUAL) 11 % (0-4); LYMPHOCYTES % (MANUAL) 8 % (16-48); MONOCYTES % (MANUAL) 12 % (0-11.0); NEUTROPHILS % (MANUAL) 48 (42-76)
[2019-03-07] MEDS: METRONIDAZOLE 500MG/ NS 100ML 500 MG in PREMIX 1 EA IV SCH ×2 (11:11→17:49)
--- NOTE | 2019-03-07 12:15 | NUR ---
ICU/RN: CRITICAL LACTIC ACID OF 21.4. CALLED AND NOTIFIED. NO NEW ORDERS AT THIS TIME
[2019-03-07 13:04] LABS: ABG BASE EXCESS -23.4 mmol/L; ABG OXYGEN SATURATION 98.9 % (92.0-98.5); ABG PH 7.014 (7.350-7.450); ABG PO2 275.5 mmHg (75.0-100.0); AaDO2 412.5 mmHg; COHb 0.3 % (0.5-1.5); MetHb 0.8 % (0.0-1.5); O2Hb 97.8 % (94.0-97.0); SITE, ABG Right Radial
[2019-03-07 16:07] LABS: BILIRUBIN,URINE MODERATE (NEGATIVE); BLOOD, URINE LARGE Ery/uL (NEGATIVE); KETONES,URINE NEGATIVE (NEGATIVE); LEUKOCYTE ESTERASE ,URINE TRACE (NEGATIVE); NITRITE, URINE NEGATIVE (NEGATIVE); PH,URINE 6.5 (5.0-8.0); PROTEIN,URINE >=300 mg/dl (NEGATIVE); UGLUCOSE 100 MG/DL mg/dL (NEGATIVE); UROBILINOGEN,URINE 0.2 EU/dL (0.2)
[2019-03-07 16:20] LABS: APPEARANCE,URINE CLOUDY (CLEAR); COLOR,URINE DARK YELLOW (YELLOW)
[2019-03-07 16:21] LABS: RBC,URINE 81-100 /HPF (0-2)
[2019-03-07 16:22] LABS: BACTERIA,URINE Moderate /HPF (None Seen); SQUAMOUS EPITHELIAL CELL,UR Moderate /HPF (None Seen); URINE AMORPHOUS URATE Few /HPF (None Seen)
[2019-03-07 16:42] LABS: EOSINOPHILS % (AUTO) 9.8 % (0.0-6.0); HEMATOCRIT 38 % (33-45); HEMOGLOBIN 10.7 g/dL (11.5-14.8); LYMPHOCYTES % (AUTO) 7.6 % (20.0-44.0); MEAN CORPUSCULAR HGB CONC 29 g/dl (31.0-36.0); MEAN CORPUSCULAR VOLUME 123 fL (82-100); MONOCYTES % (AUTO) 6.7 % (2.0-12.0); NEUTROPHILS % (AUTO) 74.9 % (43.0-81.0); PLATELET COUNT (AUTO) 86 /CMM (150-450); RED BLOOD CELL COUNT(AUTO) 3.05 MIL/uL (4.0-5.2)
[2019-03-07 16:43] LABS: BASOPHILS # (AUTO) 0.1 /CMM (0.0-0.2); LYMPHOCYTES # (AUTO) 0.6 /CMM (0.8-4.8); MONOCYTES # (AUTO) 0.5 /CMM (0.1-1.30)
--- NOTE | 2019-03-07 17:08 | NUR ---
RT PATIENT REMAINS ON [facility] VENT IN CRITICAL CONDITION. VENT ALARMS CHECKED AND AUDIBLE. CONT CURRENT PLAN OF CARE. Addendum: 03/07/19 at 1710 by PORFIRIO BOWEN RT Amended: Links added.
[2019-03-07 17:24] LABS: ALBUMIN 2.2 g/dL (3.4-5.0); BILIRUBIN,TOTAL 8.3 mg/dL (0.2-1.0); CALCIUM, SERUM 7.2 mg/dL (8.5-10.1); CREATININE 3.7 mg/dL (0.6-1.3); MAGNESIUM 1.7 mg/dL (1.8-2.4); POTASSIUM 5.7 mmol/L (3.5-5.1); TOTAL PROTEIN, SERUM 5.4 g/dL (6.4-8.2)
[2019-03-07 17:33] LABS: BAND % (MANUAL) 7 % (0.0-5.0); LYMPHOCYTES % (MANUAL) 14 % (16-48); MONOCYTES % (MANUAL) 8 % (0-11.0); NEUTROPHILS % (MANUAL) 71 (42-76)
[2019-03-07 17:41] LABS: EOSINOPHIL,URINE None Seen
--- NOTE | 2019-03-07 18:47 | NUR ---
ICU/RN: SON ANAIS AND AT BEDSIDE. UPDATES REGARDING PT CONDITION GIVEN. FAMILY WISHES TO CONTINUE WITH FULL CODE. FAMILY UNDERSTANDS PT HAS POOR PROGNOSIS.
--- NOTE | 2019-03-07 18:50 | NUR ---
ICU/RN: ENDING NOTES,AM BEDSIDE REPORT WILL BE ENDORSED TO NIGHT NURSE FOR KIERA. PT CONTINUES ON FULL VENT SUPPORT WITH SETTINGS ORDERED BY MD. PT COMATOSE, DOES NOT FOLLOW COMMANDS, DOES NOT REACT TO PAINFUL STIMULI. SINUS TACH ON TELE. PT ANURIC. RIGHT UPPER ARM PICC LINE PATENT AND INTACT. PT MAX ON LEVO, JOHN AND SHOCK DOSE OF VASOPRESSIN. NS WITH 2 AMPS OF BICARB INFUSING ORDERED. PT REMAINS IN CRITICAL CONDITION, SON AND GIVEN UPDATES AND EXPLAINED PT'S POOR PROGNOSIS. WILL ENDORSE REPORT. SAFETY MEASURES TAKEN, BED IN LOW POSITION, SIDE RAILS UP.
--- NOTE | 2019-03-07 19:10 | NUR ---
DECK CADET NOTES 1906: LAUREL MCCLELLAN CALLED FOR [facility]. 191:CALLED AND SPOKE TO PATIENT'S SON ANAIS. ANAIS UPDATED REGARDING CURRENT CHANGE OF CONDITION. PER ANAIS, CONTINUE CARE, FULL CODE. 1910: LAUREL MCCLELLAN SUCCESSFUL AFTER 2 ROUNDS OF EPI AND 1 AMP OF BICARB, PULSES BACK. ANAIS CALLED AGAIN AND NOTIFIED
--- NOTE | 2019-03-07 19:22 | NUR ---
VEGETABLE TESTER NOTES - CODE BLUE #2 SECOND CODE BLUE CALLED DUE TO ASYSTOLE. 1 ROUND OF EPI AND 1 ROUND OF ATROPINE ADMINISTERED BEFORE ROSC OBTAINED. CALLED AND SPOKE TO PATIENT'S SON ANAIS TO NOTIFY REGARDING SECOND CODE BLUE. ANAIS VERBALIZES UNDERSTANDING, AND WISHES TO CONTINUE TREATMENT, FULL CODE
--- NOTE | 2019-03-07 20:21 | NUR ---
RECEIVED PT INTUBATED ON VENT, 7.5 ETT SECURED AT 23CM AT THE LIP. @1907 CODE BLUE INTIATED @191 PULSES BACK. @1920 SECOND CODE BLUE @1923 PULSES BACK. WILL CONTINUE TO MONITOR, CONTINUE VENT SUPPORT. Addendum: 03/07/19 at 2033 by TD VELA RT Amended: Links added.
--- NOTE | 2019-03-07 20:30 | NUR ---
STREETCAR MOTORMAN NOTES PATIENT'S SON ANAIS AT BEDSIDE, FULL UPDATE GIVEN REGARDING PATIENT'S CURRENT CONDITION. PER ANAIS, CONTINUE CARE, FULL CODE. ANAIS NOTED WITH DEEPIKA SALINAS, PRAYING. NURSE EXPLAINED TO ANAIS THAT THE PATIENT IS ON A VENTILATOR AND THAT THE HOSPITAL HAS MULTIPLE O2 LINES THROUGHOUT. BRAD WAS PUT OUT IMMEDIATELY AND ANAIS IN UNDERSTANDING REGARDING SAFETY RULES. PATIENT CONTINUES ON MAX DOSE OF LEVO, JOHN AND VASO
--- NOTE | 2019-03-07 22:00 | NUR ---
CLOSED CIRCUIT SCREEN WATCHER NOTES PATIENT'S FELIX AND FAMILY MEMBER FABBY AT BEDSIDE. UPDATE GIVEN REGARDING CURRENT CONDITION OF PATIENT. ALL QUESTIONS ANSWERED ABLE, WITH VERBALIZATION OF UNDERSTANDING. FAMILY APPRECIATIVE REGARDING CARE. WILL CONTINUE CLOSE MONITORING
[2019-03-07] MEDS ORDERED: Magnesium 1 GM/2 ML VIAL IV ONE (22:47)
[2019-03-07] MEDS ORDERED: VASOPRESSIN INJ 20 UNIT/ML VIAL IV ONE (22:47)
[2019-03-07] MEDS ORDERED: EPINEPHRINE (1:10,000) SYRINGE 1 MG/10 ML DISP.SYRIN IVP ONE (22:47)
--- NOTE | 2019-03-07 23:30 | NUR ---
ACCOUNTS COLLECTOR NOTES MULTIPLE CALLS MADE TO PATIENT'S SON ANIAS REQUESTED BY FAMILY IN THE EVENT OF ANY CHANGE. SINCE UNABLE TO REACH ANAIS, VOICE MESSAGE LEFT WITH PATIENT'S FELIX. AWAITING CALL BACK.
--- NOTE | 2019-03-07 23:35 | NUR ---
@[address] GREEN AT BEDSIDE. @4616 PT . Addendum: 03/07/19 at 2336 by TD VELA RT Amended: Links added.
--- NOTE | 2019-03-07 23:42 | NUR ---
BURRER HAND NOTES ATTEMPTED TO CALL PATIENT'S SON ANAIS MULTIPLE TIMES, MESSAGE LEFT TO CALL BACK. [phone]
--- NOTE | 2019-03-07 23:55 | NUR ---
LABOR UTILIZATION SUPERINTENDENT NOTES RECEIVED CALL FROM PATIENT'S FELIX. FAMILY MADE AWARE REGARDING TIME OF EXPIRATION. NO MORTUARY ARRANGEMENTS YET OF THIS TIME. PER FAMILY, THEY WILL TRY TO CALL ANAIS (SON) WELL TO NOTIFY REGARDING PATIENT'S PASSING
--- NOTE | 2019-03-08 01:00 | NUR ---
PIGMENT FURNACE TENDER NOTES PATIENT REMAINS BROUGHT DOWNSTAIRS TO [facility] [place] WITH RN AND SECURITY STAFF
== END 2019-03-07 22:48 | disposition expired | DRG 720 ==
LOC: ER 12:15 → ICU 16:03
PROVIDERS: ADMIT Family Medicine; ATTEND Family Medicine
PROC: 0BH18EZ Insertion of Endotracheal Airway into Trachea, Via Natural or Artificial Opening Endoscopic (ICD-10-PCS; principal; 2019-03-06)
PROC: 5A1945Z Respiratory Ventilation, 24-96 Consecutive Hours (ICD-10-PCS; principal; 2019-03-06)
DX: A41.9 Sepsis, unspecified organism (principal); J96.00 Acute respiratory failure, unspecified whether with hypoxia or hypercapnia; I21.A1 Myocardial infarction type 2; K72.00 Acute and subacute hepatic failure without coma; N17.0 Acute kidney failure with tubular necrosis; K85.10 Biliary acute pancreatitis without necrosis or infection; E44.0 Moderate protein-calorie malnutrition; G93.41 Metabolic encephalopathy; R18.8 Other ascites; E11.649 Type 2 diabetes mellitus with hypoglycemia without coma; D69.6 Thrombocytopenia, unspecified; E87.5 Hyperkalemia; K74.60 Unspecified cirrhosis of liver; Z79.84 Long term (current) use of oral hypoglycemic drugs; I25.10 Atherosclerotic heart disease of native coronary artery without angina pectoris; Z85.3 Personal history of malignant neoplasm of breast; K76.0 Fatty (change of) liver, not elsewhere classified; Z90.11 Acquired absence of right breast and nipple; Z79.899 Other long term (current) drug therapy; Z87.891 Personal history of nicotine dependence; M10.9 Gout, unspecified; J98.11 Atelectasis; E87.2 Acidosis; F41.9 Anxiety disorder, unspecified; E83.51 Hypocalcemia; F29 Unspecified psychosis not due to a substance or known physiological condition; I70.0 Atherosclerosis of aorta; D25.9 Leiomyoma of uterus, unspecified; I10 Essential (primary) hypertension; R65.21 Severe sepsis with septic shock; E87.70 Fluid overload, unspecified; E83.39 Other disorders of phosphorus metabolism
CPT/HCPCS: 31720; 36415; 36569; 36600; 70450-TC; 71045-TC; 76705-TC; 80048-TC; 80053-TC; 80061-TC; 80076-TC; 81000-TC; 82140-TC; 82533; 82570-TC; 82803-TC; 82962-TC; 83605-TC; 83690-TC; 83735-TC; 83880; 84100-TC; 84155-TC; 84300-TC; 84484-TC; 84550-TC; 85025-TC; 85730-TC; 87040-TC; 87081-TC; 87086-TC; 92950-TC; 93307-TC; 94002-TC; 94003-TC; 94799-TC; 99082-TC; A4216; C1751; G0378; G0480; J0171; J0461; J0610; J0696; J1720; J1815; J2370; J2543; J3010; J3475; J3490; J7030; J7040; J7050; J7060